=== PATIENT | female | born 1985 | race Caucasian/White ===

== ENCOUNTER 2017-11-24 12:09 | Emergency (ER) | payer OTHER, SELFPAY ==
[2017-11-24 12:28] VITALS: BP 121/71; PULSE 73; RESP 18; O2SAT 100
--- NOTE | 2017-11-24 12:36 | ED.SKABFB ---
HPI - Skin/Abscess/Foreign Bdy <SOILA Sarmiento - Last Filed: 11/24/17 14:48> General Chief complaint: Skin/Abscess/Foreign Body Stated complaint: Laceration on left foot Time Seen by Provider: 11/24/17 12:27 Source: patient Mode of arrival: ambulatory Limitations: no limitations History of Present Illness HPI narrative: Patient presented after ?catching my foot on a bike gear. She states that she has it cut on the full length of the top of her foot. She states her tetanus was within the past 2 years when she was . She denies any numbness or tingling or decreased range of motion. She states her father is a physician who [employer] to before she came in. Her wound was not cleansed beforehand. Related Data Allergies Allergy/AdvReac Type Severity Reaction Status Date / Time scopolamine Allergy Verified 11/24/17 12:34 acetaminophen [From Vicodin] AdvReac Verified 11/24/17 12:33 hydrocodone [From Vicodin] AdvReac Verified 11/24/17 12:33 Review of Systems <SOILA Sarmiento - Last Filed: 11/24/17 14:48> Review of Systems GENERAL: Denies chills, fatigue, malaise, fever, sweats. HEENT: Denies sinus pain, ear pain, sore throat, difficulty swallowing, dizziness. RESPIRATORY: Denies dyspnea, cough, wheezing, hemoptysis, sputum. CARDIOVASCULAR: Denies chest pain, palpitations, orthopnea, edema, GASTROINTESTINAL: Denies nausea, vomiting, abdominal pain, diarrhea, constipation, melena. : Denies dysuria, frequency, incontinence, hematuria, urinary retention. MUSCULOSKELETAL: See HPI SKIN: See HPI NEUROLOGIC: Denies weakness, headache, numbness, change in speech, confusion, seizures, incoordination. PSYCHIATRIC: No concerning psychosocial issues. 12 point review of systems is negative except for those stated above Exam <SOILA Sarmiento - Last Filed: 11/24/17 14:48> Narrative Exam Narrative: GENERAL: This is a well-nourished, well-developed patient, lying in bed with friend at bedside. HEAD: Atraumatic. Normocephalic. No temporal or scalp tenderness. EYES: Pupils equal round and reactive. Extraocular motions intact. No scleral icterus. No injection or drainage. ENT: Nose without bleeding, purulent drainage or septal hematoma. Airway patent. NECK: Trachea midline. No JVD or lymphadenopathy. Supple, nontender, no meningeal signs. CARDIOVASCULAR: Regular rate and rhythm without murmurs, gallops, or rubs. RESPIRATORY: Clear to auscultation. Breath sounds equal bilaterally. No wheezes, rales, or rhonchi. GASTROINTESTINAL: Abdomen soft, non-tender, nondistended. EXTREMITIES: Laceration noted dorsal aspect of left foot. Full range of motion noted left ankle and foot. Patient able to move left toes. Pulse motor sensory intact left foot. Positive pedal pulses left foot. Capillary refill less than 2 sec all toes left foot. NEURO: AOx3. SKIN: 10 cm laceration the dorsal aspect of her left foot. Laceration is linear with edges well approximated. Laceration is through the dermis, no tendon or muscular involvement. Noted to have a 0.25 cm flap at proximal end of wound. No tendon or muscular involvement. Initial Vital Signs Initial Vital Signs: Vital Signs Pulse Rate 73 11/24/17 12:28 Respiratory Rate 18 11/24/17 12:28 Blood Pressure 121/71 H 11/24/17 12:28 Pulse Oximetry 100 11/24/17 12:28 <Van Wang DO - Last Filed: 11/24/17 15:02> Initial Vital Signs Initial Vital Signs: Vital Signs Pulse Rate 73 11/24/17 12:28 Respiratory Rate 18 11/24/17 12:28 Blood Pressure 121/71 H 11/24/17 12:28 Pulse Oximetry 100 11/24/17 12:28 Procedures <EVON Sarmiento - Last Filed: 11/24/17 14:48> Laceration Repair Laceration 1: Site: lower extremity Side (If applicable): left Size (cm): 10 Description: linear and flap Depth: simple, single layer Local Anesthetic: lidocaine 1% Amount of anesthesia used (mL): 5 Pre-repair: wound explored, irrigated extensively (500 cc sterile saline, betasept, cleansed with chlorahexadine ) and deep structures intact Skin layer closed with: nylon Size (cm): 4-0 Number of sutures: 14 Technique: simple, interrupted Course <EVON Sarmiento - Last Filed: 11/24/17 14:48> Additional Information: Patient presented with laceration. She was numbed with lidocaine cream prior to lidocaine injections. Laceration was closed as per procedure note without incident. Vital Signs - 8 hr 11/24/17 12:28 11/24/17 14:25 Pulse Rate 73 73 Respiratory Rate 18 16 Blood Pressure 121/71 H Blood Pressure [Right Arm] 112/71 Pulse Oximetry 100 100 <Van Wang DO - Last Filed: 11/24/17 15:02> Vital Signs - 8 hr 11/24/17 12:28 11/24/17 14:25 Pulse Rate 73 73 Respiratory Rate 18 16 Blood Pressure 121/71 H Blood Pressure [Right Arm] 112/71 Pulse Oximetry 100 100 MDM - Skin/Abscess/Foreign Bdy <Josie PARKER Padron-BC - Last Filed: 11/24/17 14:48> MDM Narrative Medical decision making narrative: Patient presented with laceration. Closed as in procedure note. Wound was cleaned with chlorhexidine, Betasept and 500 cc of sterile saline. Patient's tetanus was up-to-date within the past 2 years. Patient declined x-ray of foot. However she has good motion and circulation noted. Discussed at length warning signs of infection and following up with health care provider if noticing any drainage, extending redness or fever. Patient was planning on biking to very. [employer] cab ride, however patient declined. This patient was placed in a postoperative shoe in order to protect her wound. Discharge Plan Departure Patient Disposition: Home, Self-Care Clinical Impression: Laceration Instructions: Laceration Repair, DI for Laceration Repair, DI for Laceration Repair -- Simple Activity Restrictions/Additional Instructions: Monitor your wound for signs and symptoms of infection. This includes redness from the laceration site, pus or fever. Follow-up with a health care provider if any of these occur. I suggest rest stating for the next few days and decreased weight-bearing as able. Take [id number] medication as needed for pain. The easier you take it, the better your wound will likely heal. I strongly suggest not swimming, putting her foot in a pool or hot tub or any free standing water. This is an easy way to get infection. Follow up with your healthcare provider in 8-10 days for suture removal. <Van Wang DO - Last Filed: 11/24/17 15:02> Cosign ED Attending Kota Attestation: I was available for consultation during this patient's emergency department encounter
[2017-11-24 14:25] VITALS: BP 112/71; PULSE 73; RESP 16; O2SAT 100
--- NOTE | 2017-11-24 14:39 | PC.NURSE ---
suture complete (14 in total) foot cleaned, bacitracin x 3 applied, 8 - 4x4s and coban to wound.no blood on bandage
== END 2017-11-24 15:03 | disposition home or self-care (01) ==
PROVIDERS: Emergency Provider Nurse Practitioner Family
DX: S91.312A Laceration without foreign body, left foot, initial encounter (principal); W26.8XXA Contact with other sharp object(s), not elsewhere classified, initial encounter
CPT/HCPCS: 12004; 29550; 99283